=== PATIENT | female | born 1960 | race Caucasian/White ===

== ENCOUNTER → 2016-10-02 | Outpatient (CLI) | payer OTHER ==
[2016-10-02 08:46] LABS: HEMOGLOBIN 12.2 g/dL (12.2-16.2); LYMPH # 1.4 K/mm3 (0.7-4.5); LYMPH % 30.9 % (10-50.0)
[2016-10-02 10:32] LABS: BUN 8 mg/dL (7-18)
[2016-10-02 10:38] LABS: GFR (ESTIMATED) 86 ML/MIN (59-)
[2016-10-04 08:38] LABS: Vitamin D, 25-Hydroxy 23.2 ng/mL (30.0-100.0)
== END ==
LOC: LAB 07:27
PROVIDERS: Family Medicine
DX: E03.9 Hypothyroidism, unspecified (principal); K21.0 Gastro-esophageal reflux disease with esophagitis; D64.9 Anemia, unspecified; E55.9 Vitamin D deficiency, unspecified